=== PATIENT | female | born 1975 | race Caucasian/White ===

== ENCOUNTER 2017-12-24 06:33 | Day surgery (SDC) | payer BC, OTHER ==
[~2017-12-24] VITALS: Ht 165.1 cm; Wt 103.1 kg
[~2017-12-24 06:33] MED LIST: CYMBALTA60 MG PO; ENDOCET 5-3251 EACH PO; IBUPROFEN800 MG PO; LANSOPRAZOLE30 MG PO; MOTRIN IB200 MG PO; TRAZODONE HCL50 MG PO; TYLENOL EXTRA500 MG PO
[2017-12-24 07:33] VITALS: BP 121/75
[2017-12-24] MEDS ORDERED: ULTRAM50 MG PO (10:13)
[2017-12-24 10:50] VITALS: BP 114/72
[2017-12-24 11:18] VITALS: BP 115/65
== END 2017-12-24 11:20 | disposition home or self-care (01) ==
LOC: SDC 06:33
PROC: 0KBF0ZZ Excision of Right Trunk Muscle, Open Approach (ICD-10-PCS; principal; 2017-12-24)
DX: D17.1 Benign lipomatous neoplasm of skin and subcutaneous tissue of trunk (principal); K21.9 Gastro-esophageal reflux disease without esophagitis; E66.9 Obesity, unspecified; Z68.38 Body mass index [BMI] 38.0-38.9, adult
CPT/HCPCS: 88304; J0690; J2250; J3010; S0020